=== PATIENT | female | born 2000 | race Two or more races ===

== ENCOUNTER 2019-11-15 06:00 | Day surgery (SDC) | payer OTHER ==
[~2019-11-15 06:00] MED LIST: ADDERALL 10 MG10 MG PO
[2019-11-15] MEDS ORDERED: ULTRACET PO (10:18)
[2019-11-15] MEDS ORDERED: KETO10TA2 PO (10:19)
== END 2019-11-15 13:55 | disposition home or self-care (01) ==
LOC: CIR.AMB 06:00
PROVIDERS: ATTEND Obstetrics & Gynecology
DX: N84.0 Polyp of corpus uteri (principal); N80.1 Endometriosis of ovary; N83.291 Other ovarian cyst, right side; Z20.828 Contact with and (suspected) exposure to other viral communicable diseases

== ENCOUNTER → 2020-08-09 | Emergency (ER) | payer OTHER ==
[~2020-08-09] VITALS: Ht 172.7 cm; Wt 61.2 kg
[~2020-08-09] MED LIST changes: +DRAMAMINE LESS25 MG PO; +KETO10TA2 PO; +ORILISSA150 MG; +ULTRACET PO; +ZOFRAN8 MG PO
== END | disposition home or self-care (01) ==
LOC: ER 14:48
DX: R42 Dizziness and giddiness (principal); Z11.52 Encounter for screening for COVID-19

== ENCOUNTER 2021-01-18 10:02 | Emergency (ER) | payer OTHER ==
[~2021-01-18] VITALS: Ht 172.7 cm; Wt 63.5 kg
== END 2021-01-18 13:20 | disposition home or self-care (01) ==
LOC: ER 10:02
DX: N80.9 Endometriosis, unspecified (principal)